=== PATIENT | female | born 1955 ===

== ENCOUNTER 2021-03-03 14:08 | Outpatient (CLI) | payer MEDICARE, SELFPAY ==
--- NOTE | 2021-03-03 | DI.RAD_ITS ---
Exam(s) XR TOE LT FIFTH EXAM: XR TOE LT FIFTH CLINICAL HISTORY: TOE PAIN LEFT TECHNIQUE: COMPARISON: No exams were available for comparison FINDINGS: Three views were obtained. Mild degenerative deformity of bones of the toe noted. No fracture ident ified. IMPRESSION: RADIATION DOSE DELIVERED: Total DLP
== END 2021-03-03 14:28 ==
LOC: DI 14:11
PROVIDERS: PCP Nurse Practitioner Adult Health; Visit Provider Physician Assistant Medical
DX: M79.675 Pain in left toe(s) (principal); M19.072 Primary osteoarthritis, left ankle and foot
CPT/HCPCS: 73660

== ENCOUNTER 2022-04-02 18:32 | Outpatient (REF) | payer MEDICARE, SELFPAY ==
[2022-04-02 18:52] LABS: HCT 42.1 % (36.0-46.0); HGB 13.9 g/dL (11.2-15.7); MCH 30.2 pg (27.0-33.0); MCV 92 fL (80-95); MPV 10.6 fL (8.0-11.0); Platelet Count 258 10^3/uL (130-400); RDW 13.4 % (11.7-14.6); RDW-SD 45.5 fL; WBC 6.64 10^3/uL (4.4-10.8)
[2022-04-02 19:17] LABS: ALT 24 U/L (14-59); AST 20 U/L (15-37); Albumin 3.9 g/dL (3.4-5.0); Alkaline Phosphatase 78 U/L (46-116); Anion Gap 9.5 mmol/L (3-11); BUN 14 mg/dL (7-18); Bilirubin, Total 0.4 mg/dL (0.2-1.0); CO2 26.5 mmol/L (21.0-32.0); CREATININE 0.8 mg/dL (0.55-1.02); Calcium 9.8 mg/dL (8.5-10.1); Calculated LDL 214 mg/dL (<100); Chloride 104 mmol/L (98-107); Cholesterol 289 mg/dL (<200); Estimated GFR 80.71 (mL/min/1.73m2); Glucose 111 mg/dL (74-106); HDL Cholesterol 61 mg/dL (40-60); Potassium 3.8 mmol/L (3.5-5.1); Sodium 140 mmol/L (136-145); TSH 0.64 uIU/mL (0.36-3.74); Total Protein 7.1 g/dL (6.4-8.2); Triglyceride 71 mg/dL (<150)
== END 2022-04-02 18:33 | disposition home or self-care (01) ==
LOC: NCHCN 18:32
PROVIDERS: PCP Nurse Practitioner Adult Health; Visit Provider Physician Assistant
DX: I10 Essential (primary) hypertension (principal)
CPT/HCPCS: 80053; 80061; 85027; 84439; 84443